=== PATIENT | female | born 1970 | race American Indian/Alaskan Native ===

== ENCOUNTER 2017-11-05 22:55 | Emergency (ER) | payer SELFPAY ==
[2017-11-05 23:23] VITALS: BP 109/65
[2017-11-06] MEDS ORDERED: AUGMENTIN 875 MG PO ONE (03:45)
[2017-11-06] MEDS ORDERED: MOTRIN PO ONE ×2 (03:46→04:05)
--- NOTE | 2017-11-06 03:57 | Emergency Department Report ---
Minor Respiratory - HPI Chief Complaint: Upper Respiratory Infection Stated Complaint: FLU-LIKE SX Time Seen by Provider: 11/06/17 03:10 Duration: 2 Days Pain Location: Facial Severity: moderate Minor Respiratory: Yes Rhinorrhea, Yes Able to Tolerate Fluids, Yes Cough, No Sore Throat, No Ear Pain, No Sick Contacts, No Shortness of Breath, No Fever Other History: She is a 47-year-old female with no prior medical history presents to ED complaining of stuffy nose, sinus pressure since 2 days. Patient states intermittent coughing dry nonproductive. Patient denies fevers/ chills/nausea/vomiting/abdominal pain/chest pain. ED Review of Systems ROS: Stated complaint: FLU-LIKE SX Other details as noted in HPI Constitutional: denies: chills, fever Eyes: denies: eye pain, eye discharge, vision change ENT: congestion. denies: ear pain, throat pain Respiratory: denies: cough, shortness of breath, wheezing Cardiovascular: denies: chest pain, palpitations Endocrine: no symptoms reported Gastrointestinal: denies: abdominal pain, nausea, diarrhea Genitourinary: denies: urgency, dysuria, frequency, discharge Musculoskeletal: denies: back pain, joint swelling, arthralgia Skin: denies: rash, lesions Neurological: denies: headache, weakness, paresthesias Psychiatric: denies: anxiety, depression Hematological/Lymphatic: denies: easy bleeding, easy bruising ED Past Medical Hx - Past Medical History Previous Medical History?: No - Surgical History Past Surgical History?: Yes Additional Surgical History: x 2 (last 12/06/2013) - Social History Smoking Status: Never Smoker Substance Use Type: None - Medications Home Medications: Home Medications Medication Instructions Recorded Confirmed Last Taken Type oxyCODONE /ACETAMINOPHEN [Percocet 1 tab PO Q4HR PRN #20 tablet 12/14/13 Unknown Rx 5/325 mg] Amoxicillin/K Clav Tab [Augmentin 1 each PO BID #20 tablet 11/06/17 Unknown Rx 875MG TAB] Ibuprofen [Motrin 800 MG tab] 800 mg PO Q8H PRN #20 tablet 11/06/17 Unknown Rx Pseudoephedrine ER [Sudafed 12 Hr] 120 mg PO BID #20 tablet.er 11/06/17 Unknown Rx Minor Respiratory Exam - Exam General: Vital signs noted. No distress. Alert and acting appropriately. HEENT: Yes Moist Mucous Membranes, No Pharyngeal Erythema, No Pharyngeal Exudates, No Rhinorrhea, No Conjuctival Injection, No Maxillary Tenderness Ear: Neither TM Bulge, Neither TM Erythema, Neither EAC Pain, Neither EAC Discharge Neck: Yes Supple, No Adenopathy Lungs: Yes Good Air Exchange, No Wheezes, No Ronchi, No Stridor, No Cough, No Labored Respirations, No Retractions, No Use of Accessory Muscles, No Other Abnormal Lung Sounds Heart: Yes Regular, No Murmur Abdomen: Yes Normal Bowel Sounds, No Tenderness, No Peritoneal Signs Skin: No Rash, No Edema Neurologic: Alert and oriented, no deficits. Musculoskeletal: Unremarkable. ED Course Vital Signs 11/05/17 23:16 Temperature 98.7 F Pulse Rate 93 H Respiratory 18 Rate Blood Pressure 109/65 O2 Sat by Pulse 100 Oximetry ED Medical Decision Making - Medical Decision Making 47-year-old who presented with sinusitis ED course: Patient received a dose of Augmentin and Motrin in ED I discussed the patient was sent home on antibiotics and to relieve pain Disposition follow-up with primary care physician. I discussed with the patient that if symptoms worsen or new symptoms or S return to the I discussed the patient. Take antibiotics as prescribed Vital signs are normal patient is in acute distress. Critical care attestation.: If time is entered above; I have spent that time in minutes in the direct care of this critically ill patient, excluding procedure time. ED Disposition Clinical Impression: Sinusitis, acute Qualifiers: Sinusitis location: frontal Recurrence: non-recurrent Qualified Code(s): J01.10 - Acute frontal sinusitis, unspecified Disposition: TO HOME OR SELFCARE Is pt being admited?: No Does the pt Need Aspirin: No Condition: Stable Instructions: Sinusitis (ED), Acute Bacterial Rhinosinusitis (ED) Additional Instructions: Make sure to follow up with the primary care physician as discussed. Take all your medications as you've been prescribed. If you have any worsening symptoms or develop new symptoms please return to ED immediately. Prescriptions: Amoxicillin/K Clav Tab [Augmentin 875MG TAB] 1 each PO BID #20 tablet Ibuprofen [Motrin 800 MG tab] 800 mg PO Q8H PRN #20 tablet PRN Reason: Pain Pseudoephedrine ER [Sudafed 12 Hr] 120 mg PO BID #20 tablet.er Referrals: PRIMARY CARE, [Primary Care Provider] - 3-5 Days JERRY MORAES MD [Referring] - 3-5 Days [facility] [Outside] - 3-5 Days [facility] [Outside] - 3-5 Days Forms: Work/School Release Form(ED) Time of Disposition: 04:07
== END 2017-11-06 04:20 | disposition home or self-care (01) ==
LOC: ED 22:55
DX: J01.10 Acute frontal sinusitis, unspecified (principal)
CPT/HCPCS: 99282